=== PATIENT | female | born 1990 | race Caucasian/White ===

== ENCOUNTER → 2017-05-07 | Outpatient (CLI) | payer BC ==
[2017-05-07 13:08] LABS: BASO % 0.3 %; BASO ABS # 0.02 K/uL (0-0.2); EOS % 0.4 %; EOS ABS # 0.03 K/uL (0-0.5); HEMATOCRIT 38.9 % (37-47); HEMOGLOBIN 13.6 g/dL (12.0-16.0); IG# 0.01 K/uL (0.00-0.02); LYMPH % 20.2 %; LYMPH ABS # 1.55 K/uL (1.2-3.4); MEAN CELL VOLUME 88.8 fL (80-100); MEAN CORPUSCULAR HEMOGLOBIN 31.1 pg (25-34); MEAN PLATELET VOLUME 10.1 fL (7.4-10.4); MONO % 7.3 %; MONO ABS # 0.56 K/uL (0.11-0.59); NEUT % 71.7 %; NEUT ABS # 5.52 K/uL (1.4-6.5); PLATELET COUNT 284 K/uL (130-400); RED CELL DISTRIBUTION WIDTH CV 12.2 % (11.5-14.5); RED CELL DISTRIBUTION WIDTH SD 39.4 fL (36.4-46.3); WHITE BLOOD COUNT 7.69 K/uL (4.8-10.8)
== END | disposition home or self-care (01) ==
LOC: C.LAB1850 11:34
PROVIDERS: ATTEND Obstetrics & Gynecology
DX: Z34.01 Encounter for supervision of normal first pregnancy, first trimester (principal)

== ENCOUNTER 2017-06-12 08:10 | Emergency (ER) | payer OTHER, BC ==
[~2017-06-12] VITALS: Ht 167.6 cm; Wt 65.3 kg
[2017-06-12 08:15] VITALS: TEMP 37.1; Ht 167.6 cm; Wt 65.3 kg
[2017-06-12] MEDS ORDERED: AZEL0.056 (08:54)
[2017-06-12] MEDS ORDERED: FLNIN/ NAE (08:54)
[2017-06-12] MEDS ORDERED: PREN0.12 PO (08:54)
--- NOTE | 2017-06-12 09:59 | DIAGNOSTIC IMAGING REPORT ---
ABDOMEN COMPLETE (US) CLINICAL HISTORY: ABD PAIN - 12 WKS COMPARISON STUDY: No previous studies for comparison. FINDINGS: No focal hepatic masses are visualized. The gallbladder appears sonographically normal. The pancreas appears sonographically normal. There is no ductal dilatation. The common bile duct measures 3 mm. The spleen measures 12.7 cm in length. The right kidney measures 10.9 cm in length. The left kidney measures 10.5 cm in length. There are no renal masses. There is no hydronephrosis. There is no evidence of abdominal aortic dilatation. IMPRESSION: Normal abdominal ultrasound. Electronically signed by: Michael Kelley M.D. 06/12/2017 9:58 AM Dictated Date/Time: 06/12/2017 9:56 AM
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
[2017-06-12 10:28] VITALS: BP 132/74; PULSE 69; O2SAT 100
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
== END 2017-06-12 10:53 | disposition home or self-care (01) ==
LOC: C.EDB 08:11 → C.EDA 10:53
DX: O99.89 Other specified diseases and conditions complicating pregnancy, childbirth and the puerperium (principal); R10.9 Unspecified abdominal pain; Z3A.12 12 weeks gestation of pregnancy; S80.02XA Contusion of left knee, initial encounter; V48.5XXA Car driver injured in noncollision transport accident in traffic accident, initial encounter; Y92.488 Other paved roadways as the place of occurrence of the external cause

== ENCOUNTER → 2017-07-01 | Outpatient (CLI) | payer BC, OTHER ==
[~2017-07-01] MED LIST: AZEL0.056; FLNIN/ NAE; PREN0.12 PO
== END | disposition home or self-care (01) ==
LOC: C.LAB1850 15:52
PROVIDERS: ATTEND Obstetrics & Gynecology
DX: Z34.02 Encounter for supervision of normal first pregnancy, second trimester (principal)

== ENCOUNTER → 2017-11-16 | Outpatient (CLI) | payer BC | END | disposition home or self-care (01) | LOC: C.LABSPEC 17:44 | PROVIDERS: ATTEND Obstetrics & Gynecology | DX: Z34.03 Encounter for supervision of normal first pregnancy, third trimester (principal); Z3A.00 Weeks of gestation of pregnancy not specified ==

== ENCOUNTER 2018-11-14 06:22 | Inpatient (IN) ==
[2018-11-14] MEDS ORDERED: OXYTOCIN 30 UNITS/500 ML BAG IV PRN ×2 (07:56→12:37)
--- NOTE | 2018-11-14 08:04 | History & Physical Report ---
Date of Service November 14, 2018 Assessment & Plan (1) with 38 completed weeks gestation: fetus category one (2) Normal labor: admit, routine monitoring. epidural per request. fetus category one. anticipate . History of Present Illness Chief Complaint: contractions Primary Care Provider: NO PCP Patient is a 27yowf with iup at 38 2/7 weeks who presents to labor and delivery complaining of contractions. no lof/vb. +fm. uncomplicated. short interpregnancy interval with last delivery on12/11/17 labs--B+/ab-/ri/rprnr/hepb-/hiv-/gc/ct-/ gtt x 2 nl/gbs neg Allergies Allergy/AdvReac Type Severity Reaction Status Date / Time mushroom AdvReac Intermediate RASH Verified 12/11/17 14:28 Home Medications Home Medications Medication Instructions Recorded Confirmed Type 1 tab PO DAILY #0 06/12/17 12/11/17 History azelastine 1 dose NA DAILY #0 06/12/17 12/11/17 History fluticasone propionate 2 spry KOMAL DAILY #0 06/12/17 12/11/17 History Patient History Medical History Healthy female Hx of varicella Surgical History [place] teeth extracted Social History Preferred Language: Kazakh Beliefs That Will Affect Care: None marital status: Current Living Situation: Spouse Other Information That Helps Us Care for You: No Feels Safe at Home: Yes Safety Concerns: Feels Safe At This Time Smoking Status: Never smoker Hx Alcohol Use: No Hx Substance Use: No OB History g1--11/28, , 6#14oz, no issues 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
[2018-11-14] MEDS ORDERED: ePHEDrine sulfate 50 MG/ML AMP ONE (08:07)
[2018-11-14] MEDS ORDERED: fentaNYL citrate 100 MCG/2 ML VIAL ONE (08:07)
[2018-11-14] MEDS ORDERED: BUPIVACAINE 0.25% 30 ML VIAL ONE (08:07)
[2018-11-14] MEDS ORDERED: fentaNYL 2MCG/ML ROPIV 1.25MG/ML 100 ML BAG EPI ONE (08:08)
[2018-11-14 08:12] LABS: Hematocrit (blood only) 36.5 % (37-47); Hemoglobin 12.9 g/dL (12.0-16.0); Mean Corpuscular Volume 91.3 fL (80-100); Mean Platelet Volume 9.5 fL (7.4-10.4); Platelet Count 228 K/uL (130-400); RDW Coefficient of Variation 12.3 % (11.5-14.5); RDW Standard Deviation 40.9 fL (36.4-46.3); White Blood Count 12.89 K/uL (4.8-10.8)
[2018-11-14 08:14] LABS: Mean Corpuscular Hgb Conc 35.3 g/dL (32-36)
[2018-11-14] MEDS: LACTATED RINGER'S 1,000 ML IV PRN ×2 (08:15→10:31)
[2018-11-14] MEDS ORDERED: NALOXONE HCL 1 MG in SODIUM CHLORIDE 0.9% 1000ML 1,000 ML IV PRN (08:39)
[2018-11-14] MEDS ORDERED: ePHEDrine sulfate 50 MG/ML AMP IV PRN (08:39)
[2018-11-14] MEDS ORDERED: ONDANSETRON INJ 2 MG/ML 2 ML VIAL IV PRN (08:39)
[2018-11-14] MEDS ORDERED: NALOXONE HCL 0.4 MG/1 ML VIAL/CARP IV PRN (08:39)
[2018-11-14] MEDS ORDERED: NALBUPHINE HCL INJ 10 MG/ML AMP IV PRN (08:39)
[2018-11-14] MEDS ORDERED: PROMETHAZINE HCL 6.25 MG in SODIUM CHLORIDE 0.9% 50 ML IV PRN (08:39)
[2018-11-14] MEDS ORDERED: DiphenhydrAMINE HCL 50 MG/ML VIAL IV PRN (08:39)
[2018-11-14] MEDS ORDERED: fentaNYL 2MCG/ML ROPIV 1.25MG/ML 100 ML BAG EPI PRN (08:39)
--- NOTE | 2018-11-14 08:39 | Anesthesiology Consultation ---
Date of Service November 14, 2018 Assessment & Plan (1) Encounter for pre-operative examination: Chart Review Chart Review: Acceptable Risk for Surgery and Patient NOT seen in Pre Admission Testing Consults Requested none ASA ASA2 Proposed Anesthesia Anesthesia Type: Labor Epidural Risk / Benefits Reviewed With: PT / POA / Parent / Guardian, Accepts Plan and Informed Consent Obtained History Height/Weight Height: 5 ft 6 in Weight: 77.111 kg Allergies Allergy/AdvReac Type Severity Reaction Status Date / Time mushroom AdvReac Intermediate RASH Verified 12/11/17 14:28 Medications Home Medications Medication Instructions Recorded Confirmed Last Taken 1 tab PO DAILY #0 06/12/17 12/11/17 Unknown azelastine 1 dose NA DAILY #0 06/12/17 12/11/17 Unknown fluticasone propionate 2 spry KOMAL DAILY #0 06/12/17 12/11/17 Unknown Active Medications Generic Name Dose Route Start Last Admin Trade Name Freq PRN Reason Stop Dose Admin Lactated Ringer's 1,000 mls @ 125 mls/hr 11/14/18 07:56 11/14/18 08:15 Lr IV 11/16/18 07:55 999 mls/hr .Q8H PRN Administration L&D Protocol Protocol NPO Date Last Intake of Fluids: 11/14/18 Time Last Intake of Fluids: 06:00 Date Last Intake of Solids: 11/13/18 Time Last Intake of Solids: 20:00 Past Medical History Medical History Healthy female Hx of varicella Exercise / Class Metabolic Activity II 4-5 Yardwork/Stairs/Walk up hill Past Surgical History Surgical History [place] teeth extracted Past Anesthesia History No Hx of Anesthesia Complications and No Family Hx of Anesthesia Complications History of PONV No Hx of PONV and No Hx of Motion Sickness Social History Smoking Status: Never smoker Hx Alcohol Use: No Hx Substance Use: No substance use type: does not use Physical Exam Vital Signs Last Vital Signs Temp 37.0 C 11/14/18 06:57 Pulse 73 11/14/18 08:34 Resp 20 11/14/18 06:57 BP 128/72 11/14/18 08:34 Pulse Ox 100 08/04/19 08:32 ENMT Mouth: no dentition abnormality Thyromental Distance: > or= 3.5 Finger Breadths Mallampati Class: II Neck normal visual inspection Respiratory normal respiratory effort Auscultation: lungs clear to auscultation bilaterally Cardiovascular Rate/Rhythm: regular rate and regular rhythm Psychiatric Orientation: alert Testing Laboratory Results 11/14/18 08:02
--- NOTE | 2018-11-14 09:25 | Labor Progress Brief Note ---
Date of Service November 14, 2018 Subjective comfortable after epidural Assessment & Plan (1) Normal labor: fetus reassuring. arom for thin mec. anticipate . Physical Exam Constitutional: WD/WN, vitals as above Genitourinary: cx--7-8/100/-1 arom--thin meconium toco--q6-8 efm--145 with mod variability, small accels, +scalp stim,. rare variable Results & Data Vital Signs (Past 12 Hours) Vital Signs Temp Pulse Resp BP Pulse Ox 11/14/18 09:18 73 129/66 11/14/18 09:17 75 100 11/14/18 09:12 74 100 11/14/18 09:07 77 100 11/14/18 09:02 75 130/62 100 11/14/18 08:57 72 133/63 100 11/14/18 08:52 69 133/63 100 11/14/18 08:47 75 128/68 100 11/14/18 08:42 78 131/68 100 11/14/18 08:37 80 100 11/14/18 08:36 70 135/79 11/14/18 08:34 73 128/72 11/14/18 08:32 73 134/70 100 11/14/18 08:30 86 138/77 11/14/18 08:27 70 100 11/14/18 08:22 72 100 11/14/18 08:18 70 137/82 11/14/18 08:17 73 100 11/14/18 06:57 37.0 C 20 11/14/18 06:38 37.0 C 81 128/75
[2018-11-14] MEDS ORDERED: ACETAMINOPHEN 325 MG TAB PO PRN (12:31)
[2018-11-14] MEDS ORDERED: OXYCODONE/ACETAMINOPHEN 5mg/325mg TAB PO PRN (12:31)
[2018-11-14] MEDS ORDERED: SUPERCREAM 0.870% 15 GM JAR EXT PRN (12:37)
[2018-11-14] MEDS ORDERED: BENZOCAINE 20% AER SPR 82.5 GM CAN EXT PRN (12:37)
[2018-11-14] MEDS ORDERED: BISACODYL 10 MG SUPP PR PRN (12:37)
[2018-11-14] MEDS ORDERED: DIPHTHERIA/TETANUS/PERTUSSIS 0.5 ML SYR/VIAL IM ONE (12:37)
[2018-11-14] MEDS ORDERED: HYDROCORTISONE ACETATE 25 MG SUPP PR PRN (12:37)
--- NOTE | 2018-11-14 12:47 | Delivery Summary ---
Vaginal Delivery Summary Date of Service November 14, 2018 Vaginal Delivery Summary Pre-operative Diagnosis: at 38 weeks, normal labor Post-operative Diagnosis: same, thin meconium Procedure: epidural, arom, , first degree laceration repair EBL: 300cc Aesthesia: epidural Procedure: The patient was admitted, underwent and epidural and arom for thin mec. she progressed spontaneously. She was placed flat to drain the bladder and the fetus had a decel to the 80-90 that resolved with repositioning. was checked and found to be c/c/+2-3. The patient pushed over two contractions to deliver a viable female infant in JEN position. The nose and mouth were bulb suctioned, the was vigorous and crying and the was placed in the maternal abdomen for drying and attention. Cord was clamped and cut at one minute of life. Cord blood and segment obtained. Placenta was manually extracted secondary to avulsion of the cord. Cervix/sulci/rectum intact. A first degree perineal laceration was repaired in the normal standard fashion. Hemostasis obtained with dilute pitocin and fundal massage. Apgars were 8, 10. Mother and baby doing well at the end of the delivery.
--- NOTE | 2018-11-14 13:14 | Anesthesia Procedure Note ---
Date of Service November 14, 2018 Anesthesia Post Epidural Note Vital Signs Vital Signs: Temp Pulse Resp BP Pulse Ox 37.0 C 68 20 123/67 100 11/14/18 06:57 11/14/18 12:58 11/14/18 10:00 11/14/18 12:58 11/14/18 12:17 Notes Mental Status: alert / awake / arousable Nausea / Vomiting: adequately controlled Pain: adequately controlled Airway Patency, RR, SpO2: stable & adequate BP & HR: stable & adequate Hydration State: stable & adequate Neuraxial Anesthesia: was administered and sensory block is resolving Anesthetic Complications: no major complications apparent and Pt Satisfied with anesthetic care Epidural: Removed without complications and With tip intact
[2018-11-14] MEDS: IBUPROFEN 600 MG TAB PO PRN ×3 (14:26→23:54)
[2018-11-14] MEDS: DOCUSATE SODIUM 100 MG CAP PO SCH (20:31)
[2018-11-15] MEDS: IBUPROFEN 600 MG TAB PO PRN ×2 (03:42→08:23)
[2018-11-15 06:43] LABS: Hematocrit (blood only) 35.8 % (37-47); Hemoglobin 12.3 g/dL (12.0-16.0)
--- NOTE | 2018-11-15 07:42 | Obstetrical Progress Note ---
Date of Service <Camilla Michael MD - Last Filed: 11/15/18 07:42> November 15, 2018 Assessment & Plan <Camilla Michael MD - Last Filed: 11/15/18 07:42> (1) with 38 completed weeks gestation: (2) Normal labor: (3) Encounter for care and examination after delivery: Doing well this morning, no acute complaints. Ambulating, no issues with voiding. Tolerating diet. Vitals WNL. Hg stable at 12.9 Discharge later this afternoon; discussed discharge instructions and planning, signs+symptoms to look for to call office for concerns. Subjective <Camilla Michael MD - Last Filed: 11/15/18 07:42> Ambulation: ambulating normally Voiding: no voiding problems Passing Gas:: Yes Diet Tolerance:: regular diet Lochia:: Small Feeding Type:: breast feeding Current Pain Level(1-10): 1 Constitutional: no fever, no chills, no fatigue and no weakness Respiratory: no cough and no dyspnea Cardiovascular: no chest pain, no syncope, no edema and no calf pain Breast: no breast pain Gastrointestinal: + cramping; no abdominal pain, no nausea, no vomiting, no constipation and no diarrhea/loose stools Genitourinary (female): no dysuria Neurologic: no headache(s) Physical Exam <Camilla Michael MD - Last Filed: 11/15/18 07:42> Constitutional well developed and well nourished; no acute distress Respiratory normal respiratory effort; no respiratory distress Auscultation: no crackles, no rales, no rhonchi and no wheezes Cardiovascular Rate/Rhythm: regular rate and regular rhythm Heart Sounds: no gallop, no murmur and no cardiac rub Gastrointestinal (Abdomen) Inspection/Auscultation: abdomen normal to inspection and + abdomen distended Percussion/Palpation: abdomen soft Genitourinary Speculum/Bimanual Exam: + uterus enlarged (palpable at umbilicus); uterus nontender Results & Data <Camilla Michael MD - Last Filed: 11/15/18 07:42> Vital Signs (Past 12 Hours) Vital Signs Temp Pulse Resp BP Pulse Ox 11/15/18 03:35 36.7 C 67 16 114/70 98 11/14/18 22:30 36.7 C 64 16 101/66 98 08/04/19 19:50 36.8 C 68 16 110/68 97 <Viktoriya Meehan MD, FACOG - Last Filed: 11/15/18 07:44> Co-Signing Physician Notes Resident Physician Supervision Note: I interviewed and examined the patient. Discussed with Dr. Michael and agree with findings and plan as documented in the note. Any exceptions or clarifications are listed here: Doing well. Desires d/c this pm. Instructions given. Documented By: Viktoriya Meehan MD, FACOG
[2018-11-15] MEDS ORDERED: PRENATAL VITAMIN 1 TAB PO SCH (08:00)
[2018-11-15] MEDS: DOCUSATE SODIUM 100 MG CAP PO SCH (08:22)
[2018-11-15 13:41] VITALS: O2SAT 97
[2018-11-15 15:37] VITALS: BP 125/77; PULSE 75; TEMP 98.2
[2018-11-15] MEDS ORDERED: BISACODYL 5 MG TABEC PO SCH (20:00)
== END 2018-11-15 16:30 | disposition home or self-care (01) | DRG 807 ==
LOC: OPB 06:22 → 4S1 06:25 → 4S2 15:51